=== PATIENT | male | born 1970 | race Caucasian/White ===

== ENCOUNTER 2020-03-06 05:22 | Emergency (ER) | payer OTHER ==
[~2020-03-06] VITALS: Ht 180.3 cm; Wt 105.2 kg
--- NOTE | 2020-03-06 05:45 | NUR ---
PT SLIPPED ON ICE A COUPLE DAYS AGO, NO FALL, BUT PATIENT TWISTED KNEE A BIT WHEN IT HAPPNED. PT STATES HE HAS BEEN WORKING OUT ON IT AND WAS DOING OK UNTIL THIS MORNING. ERP AT BEDSIDE FOR PEACE
[2020-03-06] MEDS ORDERED: KETOROLAC 30 MG/1 ML ONE (05:51)
--- NOTE | 2020-03-06 05:57 | NUR ---
PT STATES PAIN IS 5/10. PT MEDIXCATED PER [facility]
[2020-03-06] MEDS ORDERED: KETOROLAC 30 MG/1 ML IM ONE (06:00)
--- NOTE | 2020-03-06 06:33 | NUR ---
pt to radiology
--- NOTE | 2020-03-06 07:00 | NUR ---
[facility] of pt. report from [facility]. pt here for L knee pain after a fall a couple of glo ago. pt reports that he felt his knee twist but did not land on it. pt reports that he has pain and swelling, CMS of L foot intact. pt currently has extremity elevated with ice pack in place. pt reports decreased pain after medication resting in position of comfort with friend at bedside
[2020-03-06 07:26] VITALS: BP 109/74
--- NOTE | 2020-03-06 07:45 | NUR ---
pt in MRI
--- NOTE | 2020-03-06 08:50 | NUR ---
pt resting on gurney in position of comfort. awaiting test results
--- NOTE | 2020-03-06 09:54 | NUR ---
report to [place] [facility]
--- NOTE | 2020-03-06 09:54 | NUR ---
PT REPORT FROM [facility]. PT CARE TO BE ASSUMED.
--- NOTE | 2020-03-06 10:18 | NUR ---
KNEE IMMOBILIZER APPLIED. CRUTCHES SIZED TO PT; CRUTCHES USE DISCUSSED W/ PT; RETURN DEMO PER PT
== END 2020-03-06 10:21 | disposition home or self-care (01) ==
LOC: ED 06:12
DX: S83.92XA Sprain of unspecified site of left knee, initial encounter (principal); M71.21 Synovial cyst of popliteal space [Baker], right knee; X58.XXXA Exposure to other specified factors, initial encounter; Y93.89 Activity, other specified; Y92.89 Other specified places as the place of occurrence of the external cause; Y99.8 Other external cause status
CPT/HCPCS: 73564; 73721; 93971; 96372; 99285; J1885